=== PATIENT | male | born 2000 | race Two or more races ===

== ENCOUNTER → 2018-09-20 | Emergency (ER) | payer SELFPAY ==
[~2018-09-20] VITALS: Ht 157.5 cm; Wt 63.5 kg
[2018-09-20 23:50] VITALS: BP 139/72
--- NOTE | 2018-09-21 18:53 | Emergency Room Report ---
History of Present Illness General Chief Complaint: Upper Extremity Injury Source: Patient Present Illness Allergies: Coded Allergies: No Known Allergies (Unverified , 09/20/18) Nursing Documentation-[facility] Past Medical History: No Stated History Physical Exam Vital Signs Date Time Temp Pulse Resp B/P (MAP) Pulse Ox O2 Delivery O2 Flow Rate FiO2 09/20/18 23:50 98.2 71 16 139/72 (94) 100 Room Air Medical Decision Making Last Vital Signs Date Time Temp Pulse Resp B/P (MAP) Pulse Ox O2 Delivery O2 Flow Rate FiO2 09/20/18 23:50 98.2 71 16 139/72 (94) 100 Room Air Disposition: LEFT W/OUT BEING SEEN Condition: Unknown Referrals: NOT CHOSEN IPA/,REFERRING (PCP) Ant Hodges MD Sep 21, 2018 18:53
== END | disposition home or self-care (01) ==
LOC: EDBD 23:43 → EMR 23:59
DX: Z53.21 Procedure and treatment not carried out due to patient leaving prior to being seen by health care provider (principal)
CPT/HCPCS: 99283